=== PATIENT | female | born 1960 | race Caucasian/White ===

== ENCOUNTER 2016-09-14 20:23 | Emergency (ER) | payer MEDICAID, OTHER ==
[~2016-09-14] VITALS: Ht 157.5 cm; Wt 72.0 kg
[2016-09-14 20:26] VITALS: Ht 157.5 cm; Wt 72.0 kg
--- NOTE | 2016-09-14 22:21 | ERD ---
ER Documentation Chief Complaint Date/Time DATE: 09/14/16 TIME: 22:15 Chief Complaint RUQ abd pain, and bilateral leg pain x 2 days. denies injury HPI 56 yo female presents here in the [facility] for complaints of RUQ abdominal pain and bilateral leg pain for 2 days. Describes the right upper quadrant abdominal pain as sharp pain, 6/10, accompanied with nausea and acid reflux at times. Patient denies any fever or chills. Patient did not take any medications of symptoms. Patient also is complaining of bilateral upper leg pain throbbing pain succession scale, is worse upon walking at times. Patient denies any redness or swelling. Patient denies any fever or chills. Patient denies any trauma and affected area. Patient denies any deformity. Patient denies any numbness or tingling. ROS All systems reviewed and are negative except as per history of present illness. Medications Home Meds Reported Medications [unknown] No Conflict Check 10/13/10 Allergies Allergies: Coded Allergies: No Known Allergy (Verified , 01/08/14) PMhx/Soc History of Surgery: Yes ( X3) Anesthesia Reaction: No Hx Neurological Disorder: Yes (MIGRAINE, STROKE) Hx Respiratory Disorders: No Hx Cardiac Disorders: Yes (HTN) Hx Psychiatric Problems: No Hx Miscellaneous Medical Probl: Yes (HTN) Hx Alcohol Use: No Hx Substance Use: No Hx Tobacco Use: No FmHx Family History: No coronary disease, No diabetes, No other Physical Exam Vitals Vital Signs Date Time Temp Pulse Resp B/P Pulse Ox O2 Delivery O2 Flow Rate FiO2 09/14/16 20:26 97.7 82 20 133/80 100 Physical Exam GENERAL: The patient is well developed and appropriate for usual state of health, in no apparent distress. CHEST: Clear to auscultation bilaterally. There are no rales, wheezes or rhonchi. HEART: Regular rate and rhythm. No murmurs, clicks, rubs or gallops. No S3 or S4. ABDOMEN: Soft, nontender and nondistended. Good bowel sounds. No rebound or guarding. No gross peritonitis. No gross organomegaly or masses. No Islas sign or McBurney point tenderness. BACK: No midline or flank tenderness. EXTREMITIES: Equal pulses bilaterally. There is no peripheral clubbing, cyanosis or edema. No focal swelling or erythema. Full range of motion. Grossly neurovascularly intact. NEURO: Alert and oriented. Cranial nerves 2-12 intact. Motor strength in all 4 extremities with 5/5 strength. Sensation grossly intact. Normal speech and gait. SKIN: There is no apparent rash or petechia. The skin is warm and dry. HEMATOLOGIC AND LYMPHATIC: There is no evidence of excessive bruising or lymphedema. No gross cervical, axillary, or inguinal lymphadenopathy. Result Diagram: 09/14/16221909/14/162219 Results 24 hrs Laboratory Tests Test 09/14/16 22:18 09/14/16 22:20 Urine Color LT. YELLOW Urine Clarity CLEAR Urine pH 6.0 Urine Specific Otho 1.020 Urine Ketones NEGATIVE Urine Nitrite NEGATIVE Urine Bilirubin NEGATIVE Urine Urobilinogen 0.2 E.U./dL Urine Leukocyte Esterase NEGATIVE Urine Microscopic RBC 10-25/HPF Urine Microscopic WBC 0-2/HPF Urine Squamous Epithelial Cells FEW Urine Hemoglobin 3+ Urine Glucose NEGATIVE% Urine Total Protein NEGATIVE White Blood Count 7.710^3/ul Red Blood Count 4.3710^6/ul Hemoglobin 12.7g/dl Hematocrit 38.5% Mean Corpuscular Volume 88.1fl Mean Corpuscular Hemoglobin 29.1pg Mean Corpuscular Hemoglobin Concent 33.0g/dl Red Cell Distribution Width 12.9% Platelet Count 53504^3/UL Mean Platelet Volume 10.5fl Neutrophils % 46.7% Lymphocytes % 41.5% Monocytes % 6.1% Eosinophils % 4.8% Basophils % 0.8% Nucleated Red Blood Cells % 0.0/100WBC Neutrophils # 3.610^3/ul Lymphocytes # 3.210^3/ul Monocytes # 0.510^3/ul Eosinophils # 0.410^3/ul Basophils # 0.110^3/ul Nucleated Red Blood Cells # 0.010^3/ul Sodium Level 142mmol/L Potassium Level 3.9mmol/L Chloride Level 104mmol/L Carbon Dioxide Level 27mmol/L Anion Gap 15 Blood Urea Nitrogen 17mg/dl Creatinine 0.63mg/dl Glucose Level 101mg/dl Calcium Level 10.3mg/dl Total Bilirubin 0.1mg/dl Direct Bilirubin 0.00mg/dl Indirect Bilirubin 0.1mg/dl Aspartate Amino Transf (AST/SGOT) 24IU/L Alanine Aminotransferase (ALT/SGPT) 34IU/L Alkaline Phosphatase 128IU/L Total Protein 7.8g/dl Albumin 4.7g/dl Globulin 3.10g/dl Albumin/Globulin Ratio 1.51 Lipase 152U/L Current Medications Medications (Trade) Dose Ordered Sig/Aileen Route PRN Reason Start Time Stop Time Status Last Admin Dose Admin Miscellaneous Medication (Gi Cocktail (2)) 40 ml ONCE ONCE PO 09/15/16 00:00 09/15/16 00:01 DC 09/14/16 23:59 Acetaminophen/ Hydrocodone Bitart ([place] (5/325)) 1 tab ONCE ONCE PO 09/15/16 00:00 09/15/16 00:01 DC 09/14/16 23:59 PROCEDURE: ULTRASOUND LIMITED ABDOMEN CLINICAL INDICATION: 56-year-old female with abdominal pain. TECHNIQUE: Multiple sonographic of the right upper quadrant of the abdomen were obtained. The images were reviewed on a PACS workstation. COMPARISON: CT abdomen/pelvis January 08, 2014. FINDINGS: The pancreas is partially visualized and is otherwise without abnormal echogenicity. The liver displays normal echogenicity. The liver measures 15.7 cm in length. No evidence of intrahepatic biliary ductal dilatation is seen. The portal and hepatic veins are unremarkable. The gallbladder is contracted without evidence for shadowing stones. Gallbladder wall thickness is within normal limits measuring 2.9 mm. No pericholecystic fluid is seen. The common bile duct measures 3.0 mm and is not dilated. The right kidney displays normal echogenicity. The right kidney measures 9.7 cm in maximal length. No caliectasis or hydronephrosis is seen. No free fluid is seen. IMPRESSION: Unremarkable right upper quadrant abdominal ultrasound. .Cristian Parson MD, MD Date Time Electronically viewed and signed by .Cristian Parson MD, on 09/14/2016 23:19 .M/ CC: FIOR AUSTIN COMPUTER REPAIR TECHNICIAN Procedures/MDM Medical Decision Making: Patient's symptoms of right upper quadrant abdominal pain nonspecific this time, is accompanied with acid reflux, can be gastritis also. No gallbladder stones noted, and acute cholecystitis, choledocholithiasis , lipase is normal, liver function tests are normal. There is low suspicion for abdominal emergencies at this time. Patients abdominal exam is normal at this time. Patients radiology exam does not show any abdominal emergencies at this time. There is low suspicion for appendicitis, cholecystitis, abdominal aortic aneurysms or peritonitis at this time. There is low suspicion for sepsis. Patient appears well and is hemodynamically stable. Patient's upper leg pain nonspecific at this time, possible musculoskeletal pain, no symptoms are cellulitis, no DVT, no swelling noted, no erythema noted, no trauma on affected area, radiology exams are not indicated at this time. Disposition: Home. Condition: Stable Prescription [place], Mylanta, Omeprazole Zofran, Instructions: Patient is advised to take medications as prescribed. Patient is advised to rest, increase fluid intake and do avoid fatty food and acidic food, brat diet for next 1-2 days and progress as tolerated. Patient is advised that if symptoms are worse, severe abdominal pain, uncontrolled vomiting, high fever , severe flank pain, worst signs and symptoms, to return to the emergency department immediately. Otherwise, patient can follow up with primary care doctor in 5-7 days. Departure Diagnosis: Primary Impression: Abdominal pain Abdominal location: right upper quadrant Qualified Code: R10.11 - Right upper quadrant abdominal pain Additional Impression: Leg pain Laterality: bilateral Qualified Code: M79.604 - Pain in both lower extremities Condition: Stable Patient Instructions: Abdominal Pain Additional Instructions: Patient is advised to take medications as prescribed. Patient is advised to rest , increase fluid intake and do avoid fatty food and acidic food, brat diet for next 1-2 days and progress as tolerated. Patient is advised that if symptoms are worse, severe abdominal pain, uncontrolled vomiting, high fever, severe flank pain, worst signs and symptoms, to return to the emergency department immediately. Otherwise, patient can follow up with primary care doctor in 5-7 days. FIOR AUSTIN NP Sep 14, 2016 22:21
[2016-09-14 22:35] LABS: ADD SCAN DIFF NO
[2016-09-14 22:38] LABS: BASOPHIL # 0.1 10^3/ul (0.0-0.1); BASOPHILS % 0.8 % (0.0-2.0); EOSINOPHILS # 0.4 10^3/ul (0.0-0.5); EOSINOPHILS % 4.8 % (0.0-7.0); HEMATOCRIT 38.5 % (37.0-47.0); HEMOGLOBIN 12.7 g/dl (12.0-16.0); LYMPHOCYTES # 3.2 10^3/ul (0.8-2.9); LYMPHOCYTES % 41.5 % (15.0-51.0); MEAN CORPUSCULAR HEMOGLOBIN 29.1 pg (29.0-33.0); MEAN CORPUSCULAR VOLUME 88.1 fl (82.0-101.0); MEAN PLATELET VOLUME 10.5 fl (7.4-10.4); MONOCYTE # 0.5 10^3/ul (0.3-0.9); MONOCYTES % 6.1 % (0.0-11.0); NEUTROPHIL # 3.6 10^3/ul (1.6-7.5); NEUTROPHILS % 46.7 % (39.0-77.0); PLATELET COUNT 299 10^3/UL (140-415); RED BLOOD COUNT 4.37 10^6/ul (4.20-5.40); RED CELL DISTRIBUTION WIDTH 12.9 % (11.5-14.5); WHITE BLOOD COUNT 7.7 10^3/ul (4.8-10.8)
[2016-09-14 22:48] LABS: ADD UMIC YES; URINE BILIRUBIN (Dip) NEGATIVE (NEGATIVE); URINE BLOOD (Dip) 3+ (NEGATIVE); URINE COLOR LT. YELLOW (YELLOW); URINE GLUCOSE (Dip) NEGATIVE (NEGATIVE); URINE KETONES (Dip) NEGATIVE (NEGATIVE); URINE LEUKOCYTE ESTERASE (Dip) NEGATIVE (NEGATIVE); URINE NITRITE (Dip) NEGATIVE (NEGATIVE); URINE TOTAL PROTEIN (Dip) NEGATIVE (NEGATIVE); URINE UROBILINOGEN (Dip) 0.2 E.U./dL (0.1-1.0)
[2016-09-14 22:55] LABS: SQUAMOUS EPITHELIAL CELL,UR FEW
[2016-09-14 23:01] LABS: ALBUMIN 4.7 g/dl (3.3-4.9)
[2016-09-14 23:02] LABS: POTASSIUM 3.9 mmol/L (3.5-5.1)
[2016-09-14 23:04] LABS: ALBUMIN/GLOBULIN RATIO 1.51; BILIRUBIN,INDIRECT 0.1 mg/dl (0-1.1); BILIRUBIN,TOTAL 0.1 mg/dl (0.2-1.3); CREATININE 0.63 mg/dl (0.44-1.00); TOTAL PROTEIN 7.8 g/dl (6.1-8.1)
[2016-09-14 23:05] LABS: CALCIUM 10.3 mg/dl (8.4-10.2)
--- NOTE | 2016-09-14 23:19 | RADRPT ---
PROCEDURE: ULTRASOUND LIMITED ABDOMEN CLINICAL INDICATION: 56-year-old female with abdominal pain. TECHNIQUE: Multiple sonographic of the right upper quadrant of the abdomen were obtained. The imag es were reviewed on a PACS workstation. COMPARISON: CT abdomen/pelvis January 08, 2014. FINDINGS: The pancreas is partially visualized and is otherwise without abnormal echogenicity. The liver displays normal echogenicity. The liver measures 15.7 cm in length. No evidence of intrah epatic biliary ductal dilatation is seen. The portal and hepatic veins are unremarkable. The gallbladder is contracted without evidence for shadowing stones. Gallbladder wall thickness is within normal limits measuring 2.9 mm. No pericholecystic fluid is seen. The common bile duct measur es 3.0 mm and is not dilated. The right kidney displays normal echogenicity. The right kidney measures 9.7 cm in maximal length. N o caliectasis or hydronephrosis is seen. No free fluid is seen. IMPRESSION: Unremarkable right upper quadrant abdominal ultrasound. .Cristian Parson MD, MD Date Time Electronically viewed and signed by .Cristian Parson MD, on 09/14/2016 23:19 .M/
[2016-09-15] MEDS ORDERED: HYDROCODONE/APAP (5/325) TAB PO ONE
[2016-09-15] MEDS ORDERED: LIDOCAINE/MYLANTA 40 ML BTL PO ONE
[2016-09-15] MEDS ORDERED: ONDA4TAB14 PO (00:10)
[2016-09-15] MEDS ORDERED: OMEP20CA16 PO (00:10)
[2016-09-15] MEDS ORDERED: HYDR-906 PO (00:10)
[2016-09-15] MEDS ORDERED: MAG-19 PO (00:10)
[2016-09-15 00:23] VITALS: BP 135/78; PULSE 85; RESP 16; TEMP 98.2
== END 2016-09-15 00:24 | disposition home or self-care (01) ==
LOC: FTE 20:23
DX: R10.11 Right upper quadrant pain (principal); M79.604 Pain in right leg; M79.605 Pain in left leg; I10 Essential (primary) hypertension; R11.0 Nausea
CPT/HCPCS: 76705; 80053; 81001; 83690; 85025; Z7610; 36415; 81003

== ENCOUNTER 2017-04-25 07:45 | Emergency (ER) | payer OTHER ==
[~2017-04-25] VITALS: Wt 70.7 kg
[~2017-04-25 07:45] MED LIST: HYDR-906 PO; MAG-19 PO; OMEP20CA16 PO; ONDA4TAB14 PO
[2017-04-25] MEDS ORDERED: ALBUTEROL 0.083% (NEB) 2.5 MG/3 ML AMP HHN STA (08:01)
[2017-04-25] MEDS ORDERED: DEXAMETHASONE 10 MG/ML 1 ML INJ IM ONE (08:30)
[2017-04-25] MEDS ORDERED: IPRATROPIUM (NEB) 0.5 MG/2.5 ML AMP HHN ONE (08:30)
--- NOTE | 2017-04-25 09:00 | RADRPT ---
PROCEDURE: XR Chest. CLINICAL INDICATION: Cough TECHNIQUE: Single frontal view of the chest was obtained COMPARISON: CR CHEST 05/27/2013 FINDINGS: The heart and mediastinum are within normal limits. The lungs are clear. There is no pleural effusion or pneumothorax. RPTAT: AA IMPRESSION: No acute disease. .Richard Garcia MD, MD Date Time Electronically viewed and signed by .Richard Garcia MD, on 04/25/2017 08:59 .S/
[2017-04-25] MEDS ORDERED: ALBU8.5H3 INH (09:04)
[2017-04-25] MEDS ORDERED: PRED20TA PO (09:04)
--- NOTE | 2017-04-25 10:06 | ERD ---
ER Documentation Chief Complaint Chief Complaint COUGH, WHEEZING, HX OF ASTHMA HPI 57-year-old female complaining of wheezy-like cough for the last 3 days. Patient denies fever. States she has a history of asthma. Denies any chest pain or shortness of breath. Denies leg swelling. Has been using her medication at home with no alleviation of symptoms. ROS All systems reviewed and are negative except as per history of present illness. Medications Home Meds Active Scripts Prednisone* (Prednisone*) 20 Mg Tab, 40 MG PO DAILY for 4 Days, TAB Prov:RISHI MANN PA-C 04/25/17 Albuterol Sulfate* (Proair HFA*) 8.5 Gm Hfa.aer.ad, 2 PUFF INH Q4, #1 INHALER Prov:RISHI MANN PA-C 04/25/17 Omeprazole* (Omeprazole*) 20 Mg Capsule.dr, 20 MG PO DAILY, #30 Prov:FIOR AUSTIN NP 09/15/16 Magaldrate/Simethicone* (Mylanta*) 355 Ml Susp, 30 ML PO QID Y for GASTROINTESTINAL UPSET, #1 BOTTLE Prov:FIOR AUSTIN NP 09/15/16 Ondansetron (Ondansetron Odt) 4 Mg Tab.rapdis, 4 MG PO Q8 Y for NAUSEA AND/OR VOMITING, #30 TAB Prov:FIOR AUSTIN NP 09/15/16 Hydrocodone/Acetaminophen ([place] 5-325 Tablet) 1 Each Tablet, 1 TAB PO Q6H Y for SEVERE PAIN LEVEL 7-10, #20 TAB Prov:FIOR AUSTIN NP 09/15/16 Reported Medications [unknown] No Conflict Check 10/13/10 Allergies Allergies: Coded Allergies: No Known Allergy (Verified , 04/25/17) PMhx/Soc History of Surgery: Yes ( X3) Anesthesia Reaction: No Hx Neurological Disorder: Yes (MIGRAINE, STROKE) Hx Respiratory Disorders: No Hx Cardiac Disorders: Yes (HTN) Hx Psychiatric Problems: No Hx Miscellaneous Medical Probl: No Hx Alcohol Use: No Hx Substance Use: No Hx Tobacco Use: No Smoking Status: Never smoker Physical Exam Vitals Vital Signs Date Time Temp Pulse Resp B/P Pulse Ox O2 Delivery O2 Flow Rate FiO2 04/25/17 08:14 64 20 96 21 04/25/17 07:47 97.9 60 18 144/80 97 Physical Exam GENERAL: The patient is well-appearing, well-nourished, in no acute distress HEENT: Atraumatic. Conjunctivae are pink. Pupils equal, round, and reactive to light. There is no scleral icterus. Tympanic membranes clear bilaterally. Oropharynx clear. No nystagmus or photophobia. NECK: C-spine is soft and supple. There is no meningismus. There is no cervical lymphadenopathy. No JVD. No bruits. No goiter. CHEST: Coarse breath sounds in all lung ordaz with mild wheezing. Retractions. No nasal flaring. No tripoding. No trismus or drooling. HEART: Regular rate and rhythm. No murmurs, clicks, rubs or gallops. No S3 or S4. Results 24 hrs Current Medications Medications (Trade) Dose Ordered Sig/Aileen Route PRN Reason Start Time Stop Time Status Last Admin Dose Admin Dexamethasone (Decadron) 10 mg ONCE ONCE IM 04/25/17 08:30 04/25/17 08:31 DC 04/25/17 08:08 Albuterol (Proventil 0.083% (Neb)) 5 mg ONCE STAT HHN 04/25/17 08:01 04/25/17 08:03 DC 04/25/17 08:14 Ipratropium Speonk (Atrovent 0.02% (Neb)) 0.5 mg ONCE ONCE HHN 04/25/17 08:30 04/25/17 08:31 DC 04/25/17 08:14 Procedures/MDM DIAGNOSTIC IMAGING REPORT Patient: JILL CHILDERS : 1960 Age: 57 Sex: F MR #: [id number] DOS: 04/25/17 0801 Ordering MD: YAMILET MANN PA-C Location: [facility] Room/Bed: PROCEDURE: XR Chest. CLINICAL INDICATION: Cough TECHNIQUE: Single frontal view of the chest was obtained COMPARISON: CR CHEST 05/27/2013 FINDINGS: The heart and mediastinum are within normal limits. The lungs are clear. There is no pleural effusion or pneumothorax. RPTAT: AA IMPRESSION: No acute disease. ER Course: Albuterol, Atrovent and Decadron given in ED. MDM: 57-year-old female complaining of wheezy cough. Patient's chest x-ray is within normal limits. Patient's oxygen saturation is 97% on room air. I have low suspicion for pneumonia, hypoxia or respiratory distress. Patient will be discharged with steroids and albuterol and recommended to follow-up with primary care within 1-2 days for close evaluation. Patient is told if symptoms change or worsen to return to the ER immediately. Patient is discharged with strict ER precautions. Departure Diagnosis: Primary Impression: Cough Condition: Stable Patient Instructions: Cough, Chronic, Uncertain Cause, (Adult) Referrals: [facility] YOU HAVE RECEIVED A MEDICAL SCREENING EXAM AND THE RESULTS INDICATE THAT YOU DO NOT HAVE A CONDITION THAT REQUIRES URGENT TREATMENT IN THE EMERGENCY DEPARTMENT. FURTHER EVALUATION AND TREATMENT OF YOUR CONDITION CAN WAIT UNTIL YOU ARE SEEN IN YOUR DOCTORS OFFICE WITHIN THE NEXT 1-2 DAYS. IT IS YOUR RESPONSIBILITY TO MAKE AN APPOINTMENT FOR FOLOW-UP CARE. IF YOU HAVE A PRIMARY DOCTOR --you should call your primary doctor and schedule an appointment IF YOU DO NOT HAVE A PRIMARY DOCTOR YOU CAN CALL OUR PHYSICIAN REFERRAL HOTLINE AT IF YOU CAN NOT AFFORD TO SEE A PHYSICIAN YOU CAN CHOSE FROM THE FOLLOWING [facility] [address] [facility]. [facility] [address] [facility]. [facility] [address] [facility] [facility] [address] [facility]. [facility] [address] [facility]. [facility]. [address] Additional Instructions: FOLLOW UP WITH YOUR PRIMARY CARE PHYSICIAN TOMORROW.Return to this facility if you are not improving as expected. RISHI MANN PA-C Apr 25, 2017 10:06
== END 2017-04-25 09:13 | disposition home or self-care (01) ==
LOC: FTE 07:45
DX: R05 Cough (principal); I10 Essential (primary) hypertension
CPT/HCPCS: 71010; 94664; 96372; J1100; Z7502; Z7610

== ENCOUNTER 2017-05-21 18:05 | Emergency (ER) | END 2017-05-21 21:15 | disposition home or self-care (01) ==

== ENCOUNTER 2018-04-29 13:17 | Emergency (ER) | END 2018-04-29 14:25 | disposition home or self-care (01) ==

== ENCOUNTER 2018-07-26 00:24 | Emergency (ER) | payer OTHER ==
[~2018-07-26] VITALS: Ht 157.5 cm; Wt 68.0 kg
[~2018-07-26 00:24] MED LIST changes: +ALBU8.5H8 INH; +FLUT12HF2 IH; +HYDR-4011 PO; -HYDR-906 PO; +PRED20TA PO
[2018-07-26 00:47] VITALS: Ht 157.5 cm; Wt 68.0 kg
[2018-07-26] MEDS ORDERED: hydrALAzine 20 MG INJ IV ONE (02:00)
--- NOTE | 2018-07-26 03:41 | ERD ---
ER Documentation Chief Complaint Chief Complaint GODINEZ, neck pain and palpitations x 2 days HPI Is a 58-year female, with a headache and neck pain for the past 2 days. She denies palpitations upon further questioning of the triage notes is palpitations. She denies any chest pain. Headache is mild to moderate intensi ty. She said this is related to elevated blood pressure she is been noncompliant with her medications. Denies fevers or chills. Denies any focal neurologic complaints. Denies any visual acuity changes. Blood pressure noted to be elevated in triage. ROS All systems reviewed and are negative except as per history of present illness. Medications Home Meds Active Scripts Prednisone* (Prednisone*) 20 Mg Tab, 60 MG PO DAILY for 5 Days, TAB Prov:ASTRID FISHER MD 05/21/17 Salmeterol Xinaf-Fluticasone* (Advair HFA*) 115/21 Aerosol Inhaler, 2 INH IH BID, #1 INHALER Prov:ASTRID FISHER MD 05/21/17 Albuterol Sulfate* (Proair HFA*) 8.5 Gm Hfa.aer.ad, 2 PUFF INH Q4, #1 INHALER Prov:ASTRID FISHER MD 05/21/17 Prednisone* (Prednisone*) 20 Mg Tab, 40 MG PO DAILY for 4 Days, TAB Prov:RISHI MANN PA-C 04/25/17 Albuterol Sulfate* (Proair HFA*) 8.5 Gm Hfa.aer.ad, 2 PUFF INH Q4, #1 INHALER Prov:RISHI MANN PA-C 04/25/17 Omeprazole* (Omeprazole*) 20 Mg Capsule.dr, 20 MG PO DAILY, #30 Prov:FIOR AUSTIN NP 09/15/16 Magaldrate/Simethicone* (Mylanta*) 355 Ml Susp, 30 ML PO QID PRN for GASTROINTESTINAL UPSET, #1 BOTTLE Prov:FIOR AUSTIN NP 09/15/16 Ondansetron (Ondansetron Odt) 4 Mg Tab.rapdis, 4 MG PO Q8 PRN for NAUSEA AND/OR VOMITING, #30 TAB Prov:FIOR AUSTIN NP 09/15/16 Hydrocodone/Acetaminophen ([place] 5-325 Tablet) 1 Each Tablet, 1 TAB PO Q6H PRN for SEVERE PAIN LEVEL 7-10, #20 TAB Prov:NORMANFIOR ClaireKeena ROTHMAN 09/15/16 Reported Medications [unknown] No Conflict Check 10/13/10 Allergies Allergies: Coded Allergies: No Known Allergy (Verified , 04/25/17) PMhx/Soc History of Surgery: Yes ( X3) Anesthesia Reaction: No Hx Neurological Disorder: Yes (MIGRAINE, STROKE) Hx Respiratory Disorders: Yes (Asthma) Hx Cardiac Disorders: Yes (HTN) Hx Psychiatric Problems: No Hx Miscellaneous Medical Probl: No Hx Alcohol Use: No Hx Substance Use: No Hx Tobacco Use: No Smoking Status: Never smoker Physical Exam Vitals Vital Signs Date Temp Pulse Resp B/P (MAP) Pulse Ox O2 O2 Flow FiO2 Time Delivery Rate 07/26/18 67 18 158/78 100 Room Air 02:58 (104) 07/26/18 97.2 72 16 204/93 99 00:47 (130) Physical Exam Const: No acute distress Head: Atraumatic Eyes: Normal Conjunctiva ENT: Normal External Ears, Nose and Mouth. Neck: Full range of motion. No meningismus. Resp: Clear to auscultation bilaterally Cardio: Regular rate and rhythm, no murmurs Abd: Soft, non tender, non distended. Normal bowel sounds Skin: No petechiae or rashes Back: No midline or flank tenderness Ext: No cyanosis, or edema Neur: Awake and alert Psych: Normal Mood and Affect Results 24 hrs Laboratory Tests Test 07/26/18 02:30 White Blood Count Pending Red Blood Count Pending Hemoglobin Pending Hematocrit Pending Mean Corpuscular Volume Pending Mean Corpuscular Hemoglobin Pending Mean Corpuscular Hemoglobin Concent Pending Red Cell Distribution Width Pending Platelet Count Pending Mean Platelet Volume Pending Prothrombin Time 11.5 Sec Prothrombin Time Ratio 0.9 INR International Normalized Ratio 0.83 Activated Partial Thromboplast Time 29.7 Sec Current Medications Medications Dose Sig/Aileen Start Time Status Last (Trade) Ordered Route PRN Stop Time Admin Dose Reason Admin Hydralazine 10 mg ONCE ONCE 07/26/18 DC HCl IV 02:00 07/26/18 (Apresoline) 02:01 Procedures/MDM Emergency department course: Patient seen and evaluated triage nurse. Placed in bed from the evaluation. Had blood work done. A stat CT scan. A stat EKG. Serial exams are stable. EKG: Rate/Rhythm: [Normal Sinus Rhythm] QRS, ST, T-waves: [No changes consistent w/ acute ischemia] Impression: [No evidence of ischemia or arrhythmia] Chest X-ray 1V Interpreted by me: Soft Tissue: No acute abnormalities Bones: No acute abnormalities Mediastinum/Cardiac Silhouette/Lungs: [No acute abnormalities] Patient's blood pressure was elevated (>120/80) but appears stable without evidence of hypertension emergency or urgency. The patient was counseled about the risks of hypertension and urged to pursue outpatient monitoring and therapy within a week with their primary care physician. Departure Diagnosis: Primary Impression: Hypertension Hypertension type: unspecified Qualified Codes: I10 - Essential (primary) hypertension Condition: Stable Patient Instructions: High Blood Pressure (Hypertension) FAY BINGHAM Jul 26, 2018 03:41
[2018-07-26 04:07] VITALS: BP 120/66; PULSE 62; RESP 16
== END 2018-07-26 04:09 | disposition home or self-care (01) ==
LOC: E/R 00:24
DX: I10 Essential (primary) hypertension (principal); J45.909 Unspecified asthma, uncomplicated
CPT/HCPCS: 36415; 70450; 71045; 80048; 84484; 85025; 85610; 85730; 93005